=== PATIENT | male | born 1940 | race African-American/Black ===

== ENCOUNTER 2018-04-24 16:28 | Inpatient (IN) | payer MEDICARE, OTHER ==
[~2018-04-24] VITALS: Ht 172.7 cm; Wt 58.1 kg
--- NOTE | 2018-04-24 16:05 | NUR ---
Gps/Industrial Equipment Wirer- Admitted 77 years old male from 2nd floor maria isabel wheel chair. In no distress, confused, oriented to self, speech incoherent, unable to get clear information, mumbles . Skin very dry, toenails poor groomed. Report received from SATHYA Thomason. Noted patient is [facility] gowns up and down. Kept patient by the Nurses station, ,monitor closely for safety . Lidia LEAD CONSULTANT was called and was informed of the admission from second floor, needed to reconcile his meds.and, will review meds.
[~2018-04-24 16:28] MED LIST: ACET325T53 PO; AMLO5TAB2 PO; ASPI-618 PO; ATOR40TA PO; CEPH500C2 PO; CHOL10002 PO; CLON0.1T14 PO; DOCU100C36 PO; HYDR-3326 PO; HYDR25TA86 PO; PANT40TA2 PO; QUET25TA PO; VALS160T2 PO
[2018-04-24 17:00] VITALS: BP 124/81
[2018-04-24 17:26] VITALS: BP 133/64
[2018-04-24] MEDS ORDERED: MAG HYDROX/AL HYDROX/SIMETH 30 ML LIQUID UDC PO PRN (17:45)
[2018-04-24] MEDS ORDERED: ZOLPIDEM 5 MG TABLET PO PRN (17:45)
[2018-04-24] MEDS ORDERED: MAGNESIUM HYDROXIDE 30 ML LIQUID UDC PO PRN (17:45)
[2018-04-24] MEDS ORDERED: ACETAMINOPHEN 325 MG TABLET PO PRN ×2 (17:45→23:00)
[2018-04-24 20:29] VITALS: BP 130/60
[2018-04-24] MEDS ORDERED: QUETIAPINE FUMARATE 25 MG TABLET PO PRN (23:00)
[2018-04-24] MEDS ORDERED: CLONIDINE HCL 0.1 MG TABLET PO PRN (23:00)
[2018-04-24] MEDS ORDERED: HYDROCODONE/APAP 5-325MG TABLET PO PRN (23:00)
--- NOTE | 2018-04-25 00:12 | NUR ---
Pt continues to stay by the nurses' station. Refuses to go to his room to sleep or for nursing care. Kaur per MD order offered but refused. Also refused any snack. Repeatedly states, "Maybe later. Im working". Will continue to monitor for safety.
--- NOTE | 2018-04-25 05:52 | NUR ---
Fell asleep by the nurses' station after taking a shower this morning. Still refuses to take off jewelry, saying he would like to keep them on. One ring found on the floor, Charge Nurse put it in a bag for safekeeping and endorsement to day shift. Kept in a comfortable position; monitored closely for safety.
[2018-04-25] MEDS: hydrALAZINE HCL 25 MG TABLET PO SCH ×3 (06:00→21:14)
--- NOTE | 2018-04-25 06:13 | NUR ---
Refused any meds or snacks during the shift, says "I'm good for now. Maybe later." Will endorse accordingly.
[2018-04-25] MEDS: PANTOPRAZOLE SODIUM 40 MG TABLET.DR PO SCH (07:00)
[2018-04-25 07:30] VITALS: BP 154/76
[2018-04-25 07:49] LABS: ALANINE AMINOTRANSFERASE 50 U/L (16-63); ALKALINE PHOSPHATASE 54 U/L (50-136); ASPARTATE AMINOTRANSFERASE 66 U/L (15-37); BILIRUBIN,TOTAL 0.9 mg/dL (0.2-1.0); CARBON DIOXIDE 25 mmol/L (21-32); CHLORIDE 97 mmol/L (98-107); CREATININE 1.5 mg/dL (0.6-1.3); GLUCOSE 161 mg/dL (74-106); POTASSIUM 3.7 mmol/L (3.5-5.1); TOTAL PROTEIN, SERUM 7.6 g/dL (6.4-8.2); UREA NITROGEN, BLOOD 26 mg/dL (7-18)
[2018-04-25] MEDS: VALSARTAN 160 MG TABLET PO SCH ×2 (08:55→20:45)
[2018-04-25] MEDS: CHOLECALCIFEROL 1,000 UNIT TABLET PO SCH (08:55)
[2018-04-25] MEDS: AMLODIPINE 5 MG TABLET PO SCH (08:55)
[2018-04-25] MEDS: ASPIRIN EC 81 MG TABLET.DR PO SCH (08:55)
[2018-04-25] MEDS ORDERED: SULFAMETH/TRIMETH 800/160 MG TABLET PO SCH (09:00)
[2018-04-25] MEDS ORDERED: QUETIAPINE FUMARATE 25 MG TABLET PO SCH ×2 (09:00→21:00)
[2018-04-25] MEDS: QUETIAPINE FUMARATE 25 MG TABLET PO SCH ×3 (09:46→20:44)
[2018-04-25 10:51] LABS: BASOPHILS % (AUTO) 0.3 % (0.0-2.0); EOSINOPHILS # (AUTO) 0.1 K/uL (0.0-0.7); EOSINOPHILS % (AUTO) 2.3 % (0.0-7.0); HEMATOCRIT 28.6 % (36.7-47.1); HEMOGLOBIN 9.6 g/dL (12.5-16.3); LYMPHOCYTES # (AUTO) 0.3 K/uL (20.0-40.0); LYMPHOCYTES % (AUTO) 6.3 % (20.5-51.5); MEAN CORPUSCULAR HEMOGLOBIN 33.3 uug (23.8-33.4); MEAN CORPUSCULAR HGB CONC 34 g/dL (32.5-36.3); MEAN CORPUSCULAR VOLUME 98.7 fL (73.0-96.2); MONOCYTES # (AUTO) 1.1 K/uL (2.0-10.0); MONOCYTES % (AUTO) 20.7 % (0.0-11.0); NEUTROPHILS # (AUTO) 3.6 K/uL (1.8-8.9); NEUTROPHILS % (AUTO) 70.4 % (38.5-71.5); PLATELET COUNT (AUTO) 142 K/uL (152-348); WHITE BLOOD COUNT (AUTO) 5.1 K/uL (3.6-10.2)
[2018-04-25 11:21] LABS: LYMPHOCYTES % (MANUAL) 10 % (20-40); NEUTROPHILS % (MANUAL) 70 % (42-75)
[2018-04-25 11:22] LABS: EOSINOPHILS % (MANUAL) 3 % (0-8); MONOCYTES % (MANUAL) 17 % (2-10)
[2018-04-25 15:43] VITALS: BP 102/63
[2018-04-25 20:20] VITALS: BP 101/69
[2018-04-25] MEDS: ATORVASTATIN 40 MG TABLET PO SCH (20:44)
[2018-04-25] MEDS: DOCUSATE SODIUM 100 MG CAPSULE PO SCH (20:44)
[2018-04-25] MEDS: CEPHALEXIN MONOHYDRATE 500 MG CAPSULE PO SCH (21:02)
[2018-04-26 06:00] VITALS: BP 104/44
[2018-04-26] MEDS: hydrALAZINE HCL 25 MG TABLET PO SCH ×3 (06:00→22:30)
[2018-04-26] MEDS: PANTOPRAZOLE SODIUM 40 MG TABLET.DR PO SCH (06:08)
[2018-04-26] MEDS: CEPHALEXIN MONOHYDRATE 500 MG CAPSULE PO SCH ×3 (06:08→21:15)
--- NOTE | 2018-04-26 06:48 | NUR ---
HELD BP MEDS DURING SHIFT, BP LOW. CONTINUE ON 1:1 SITTER FOR SAFETY.
[2018-04-26 07:30] VITALS: BP 120/56
[2018-04-26] MEDS: VALSARTAN 160 MG TABLET PO SCH ×2 (08:25→21:14)
[2018-04-26] MEDS: AMLODIPINE 5 MG TABLET PO SCH (08:26)
[2018-04-26] MEDS: ASPIRIN EC 81 MG TABLET.DR PO SCH (08:26)
[2018-04-26] MEDS: CHOLECALCIFEROL 1,000 UNIT TABLET PO SCH (08:26)
[2018-04-26] MEDS: QUETIAPINE FUMARATE 25 MG TABLET PO SCH ×3 (08:29→21:15)
--- NOTE | 2018-04-26 10:22 | NUR ---
Firearms Report: Solar Manufacturer'S Representative completed and submitted [employer] Firearms Report for 5250 certification on 04/26/18.
--- NOTE | 2018-04-26 11:17 | NUR ---
Initial Discharge Instructions: Patient is currently homeless. Patient reports that he lives "in the hospital." Patient presented confused and was unable to discuss discharge planning at the time of the interview. Spoke with Selwyn Bermudez ([phone]) who is the Clarifier Operator of the [facility] where pt was placed on a 5150 hold. He confirmed that the patient does not have a primary contact and that the patient is homeless. SW will continue to collaborate with the pt and MD regarding appropriate discharge disposition for the patient. SW will form a safe and proper discharge plan.
[2018-04-26 15:42] VITALS: BP 132/61
[2018-04-26 19:30] VITALS: BP 120/60
[2018-04-26] MEDS: ATORVASTATIN 40 MG TABLET PO SCH (21:14)
[2018-04-26] MEDS: DOCUSATE SODIUM 100 MG CAPSULE PO SCH (21:14)
--- NOTE | 2018-04-26 22:00 | NUR ---
received to care, lying in bed, appearing confused, but pleasant upon approach. compliant with medications, snacks, and staff direction. 1:1 sitter remains at bedside for safety. as of 2200, he appears to be asleep. no distress noted. will continue to monitor closely.
--- NOTE | 2018-04-27 06:00 | NUR ---
slept 7.5 hours, total. is now awake. assisted with AM care, and shower. sitter remains at side, for safety. no distress noted.
[2018-04-27] MEDS: PANTOPRAZOLE SODIUM 40 MG TABLET.DR PO SCH (06:04)
[2018-04-27] MEDS: CEPHALEXIN MONOHYDRATE 500 MG CAPSULE PO SCH ×2 (06:04→14:00)
[2018-04-27] MEDS: hydrALAZINE HCL 25 MG TABLET PO SCH ×3 (06:11→22:00)
[2018-04-27 08:00] VITALS: BP 134/66
[2018-04-27] MEDS: VALSARTAN 160 MG TABLET PO SCH ×2 (09:13→20:23)
[2018-04-27] MEDS: ASPIRIN EC 81 MG TABLET.DR PO SCH (09:13)
[2018-04-27] MEDS: CHOLECALCIFEROL 1,000 UNIT TABLET PO SCH (09:13)
[2018-04-27] MEDS: AMLODIPINE 5 MG TABLET PO SCH (09:14)
[2018-04-27] MEDS: QUETIAPINE FUMARATE 25 MG TABLET PO SCH ×3 (09:14→20:22)
--- NOTE | 2018-04-27 11:52 | NUR ---
GPS/RN- SITTER PATIENT ANXIOUS, CONFUSED AND RESTLESS. POOR INSIGHT, FALL RISK, AMBULATES UNSTEADY, REFUSES TO USE WALKER, OVERESTIMATES, ARGUMENTATIVE. CONFUSED DISORIENTED.
[2018-04-27 11:54] VITALS: BP 162/80
[2018-04-27] MEDS: LORAZEPAM 1 MG TABLET PO PRN (11:57)
--- NOTE | 2018-04-27 12:03 | NUR ---
Patient noted with BP of 162/88, HR of 92, PRN Clonidine 0.1 mg PO given. Patient also noted increasing anxiety, getting out of bed, asking for his valuables, PRN Ativan 1mg PO also given. Sitter at bedside. Will continue to monitor.
--- NOTE | 2018-04-27 14:00 | NUR ---
gps/rn- patient anxious and restless frequently pacing unable to redirect and calm, pushing at door then returning to station, patient returns to bed then begins to get anxious pacing again, prn ativan not effective, PRN Seroquel orders received for a one time dose at this time 25mg, orders read back to Dr Aguilar
[2018-04-27 14:12] VITALS: BP 147/68
[2018-04-27] MEDS ORDERED: QUETIAPINE FUMARATE 25 MG TABLET PO ONE (14:15)
[2018-04-27 16:00] VITALS: BP 147/69
[2018-04-27 19:00] VITALS: BP 125/68
[2018-04-27] MEDS: DOCUSATE SODIUM 100 MG CAPSULE PO SCH (20:22)
[2018-04-27] MEDS: ATORVASTATIN 40 MG TABLET PO SCH (20:22)
--- NOTE | 2018-04-27 22:00 | NUR ---
received to care, lying in bed, appearing confused, but pleasant upon approach. ambulated in hallway and toileted via front wheel walker. compliant with medications, snacks, and staff direction. 1:1 sitter remains at bedside for safety. as of 2200, he appears to be asleep. no distress noted. will continue to monitor closely.
[2018-04-28] MEDS: PANTOPRAZOLE SODIUM 40 MG TABLET.DR PO SCH (05:51)
[2018-04-28] MEDS: hydrALAZINE HCL 25 MG TABLET PO SCH ×3 (05:51→22:00)
--- NOTE | 2018-04-28 06:00 | NUR ---
slept 6.0 hours, total. is now awake. sitter remains at side, for safety. no distress noted.
[2018-04-28 08:00] VITALS: BP 103/46
[2018-04-28] MEDS: VALSARTAN 160 MG TABLET PO SCH ×2 (08:23→20:35)
[2018-04-28] MEDS: QUETIAPINE FUMARATE 25 MG TABLET PO SCH ×3 (08:23→20:35)
[2018-04-28] MEDS: ASPIRIN EC 81 MG TABLET.DR PO SCH (08:23)
[2018-04-28] MEDS: CHOLECALCIFEROL 1,000 UNIT TABLET PO SCH (08:24)
[2018-04-28] MEDS: AMLODIPINE 5 MG TABLET PO SCH (08:24)
[2018-04-28] MEDS: LORAZEPAM 1 MG TABLET PO PRN ×2 (08:45→12:49)
--- NOTE | 2018-04-28 14:37 | NUR ---
Cloud Developer: Received call from Handle Bar Assembler Boo Taylormerlyn #[id number] ([phone]) from Missing Persons. Det. Boo reported that pt had a Missing Persons Case. SW confirmed information with . Shortly after call, received call from pt's dtr, Marielle Whitfield ([phone]) who expressed gratitude that her "dad was OK and safe." She asked to speak with her father, and SW transferred call to nurse's station. SW will continue to follow-up with family regarding discharge planning.
--- NOTE | 2018-04-28 15:00 | NUR ---
GPS/RN-FAMILY INFORMATION Received call from patients daughter Jimena Yarbrough, patient lives independently at home with daughters to visit and check up on him. patient visited by daughters Kasey and Jimena, Kasey will visit on Wednesday to see how her father/patient is doing to see if family will be interested in placement. (contact # for jimena [phone] and Kasey [phone]).
[2018-04-28 16:00] VITALS: BP 110/64
--- NOTE | 2018-04-28 18:53 | NUR ---
This is second time patient has gone missing, last time was one year ago for a day or two. this time patient has been missing since 04/18/18.
[2018-04-28] MEDS: ATORVASTATIN 40 MG TABLET PO SCH (20:35)
[2018-04-28] MEDS: DOCUSATE SODIUM 100 MG CAPSULE PO SCH (20:35)
[2018-04-28 21:00] VITALS: BP 131/60
[2018-04-29] MEDS: hydrALAZINE HCL 25 MG TABLET PO SCH ×3 (06:22→22:00)
[2018-04-29] MEDS: PANTOPRAZOLE SODIUM 40 MG TABLET.DR PO SCH (06:22)
--- NOTE | 2018-04-29 07:00 | NUR ---
slept 7.0 hours, total. is now awake. sitter remains at side, for safety. no distress noted.
[2018-04-29 07:24] LABS: CARBON DIOXIDE 25 mmol/L (21-32); CHLORIDE 99 mmol/L (98-107); CREATININE 1.7 mg/dL (0.6-1.3); GLUCOSE 181 mg/dL (74-106); POTASSIUM 4.1 mmol/L (3.5-5.1); UREA NITROGEN, BLOOD 36 mg/dL (7-18)
[2018-04-29 07:30] VITALS: BP 132/61
[2018-04-29 07:53] LABS: BASOPHILS % (AUTO) 0.4 % (0.0-2.0); EOSINOPHILS # (AUTO) 0.2 K/uL (0.0-0.7); EOSINOPHILS % (AUTO) 4.8 % (0.0-7.0); HEMATOCRIT 26.4 % (36.7-47.1); HEMOGLOBIN 8.9 g/dL (12.5-16.3); LYMPHOCYTES # (AUTO) 0.6 K/uL (20.0-40.0); LYMPHOCYTES % (AUTO) 13.6 % (20.5-51.5); MEAN CORPUSCULAR HEMOGLOBIN 33.2 uug (23.8-33.4); MEAN CORPUSCULAR HGB CONC 34 g/dL (32.5-36.3); MEAN CORPUSCULAR VOLUME 98.8 fL (73.0-96.2); MONOCYTES # (AUTO) 0.6 K/uL (2.0-10.0); MONOCYTES % (AUTO) 13.8 % (0.0-11.0); NEUTROPHILS % (AUTO) 67.4 % (38.5-71.5); RED BLOOD CELL COUNT(AUTO) 2.67 MIL/uL (4.06-5.63); WHITE BLOOD COUNT (AUTO) 4.4 K/uL (3.6-10.2)
[2018-04-29 08:09] LABS: PLATELET COUNT (AUTO) 278 K/uL (152-348)
[2018-04-29] MEDS: ASPIRIN EC 81 MG TABLET.DR PO SCH (09:17)
[2018-04-29] MEDS: CHOLECALCIFEROL 1,000 UNIT TABLET PO SCH (09:17)
[2018-04-29] MEDS: VALSARTAN 160 MG TABLET PO SCH ×2 (09:17→20:51)
[2018-04-29] MEDS: AMLODIPINE 5 MG TABLET PO SCH (09:17)
[2018-04-29] MEDS: QUETIAPINE FUMARATE 25 MG TABLET PO SCH ×4 (09:18→20:51)
[2018-04-29 15:49] VITALS: BP 111/48
--- NOTE | 2018-04-29 16:11 | NUR ---
Gps/High Speed Printer Operator- Patient's daughter Marielle called ,was able to talked to patient, planning to visit patient today. Per Jewelry Internship Edwina , patient daughter filled a missing person report , and patient had been missing for 10 days. Patient remains confused, needed constant reorientations redirections.Remains on 1:1 Nursing supervision for safety
--- NOTE | 2018-04-29 18:02 | NUR ---
Gps/Fertilizer Processing Supervisor- Likes to walk around, encouraged to use front wheel walker for safety, tends to go off to right side during ambulation, needed verbal cueing, sequencing tasks/Remains confused/disoriented , no agitation noted.
[2018-04-29] MEDS: ATORVASTATIN 40 MG TABLET PO SCH (20:50)
[2018-04-29] MEDS: DOCUSATE SODIUM 100 MG CAPSULE PO SCH (20:50)
[2018-04-29 21:39] VITALS: BP 140/62
[2018-04-30] MEDS: hydrALAZINE HCL 25 MG TABLET PO SCH ×3 (05:53→22:00)
--- NOTE | 2018-04-30 06:19 | NUR ---
GPS: Remain calm and cooperative with medications and care. continue on 1:1 sitter @ bedside for safety.slept 4:30 hrs through the night. assisted with adl's. unsteady gait,on fall percaution.continue plan of care.
[2018-04-30] MEDS: PANTOPRAZOLE SODIUM 40 MG TABLET.DR PO SCH (06:26)
[2018-04-30 07:30] VITALS: BP 139/66
[2018-04-30] MEDS: CHOLECALCIFEROL 1,000 UNIT TABLET PO SCH (09:50)
[2018-04-30] MEDS: VALSARTAN 160 MG TABLET PO SCH ×2 (09:50→21:37)
[2018-04-30] MEDS: ASPIRIN EC 81 MG TABLET.DR PO SCH (09:50)
[2018-04-30] MEDS: QUETIAPINE FUMARATE 25 MG TABLET PO SCH ×4 (09:50→21:36)
[2018-04-30] MEDS: AMLODIPINE 5 MG TABLET PO SCH (09:52)
[2018-04-30 17:19] VITALS: BP 137/62
--- NOTE | 2018-04-30 18:45 | NUR ---
PATIENT HAS BEEN COMPLIANT AND WITH NO BEHAVIOR PROBLEMS 1;1 SITTER AT BEDSIDE VOIDIND AND POOR ORAL INTAKE , DAUGHTER IN TOO VISIT THIS PM STILL A LITTLE DIS ORIENTATED, CONTINUE MONITOR FOR SAFETY
[2018-04-30 20:00] VITALS: BP 135/61
--- NOTE | 2018-04-30 21:00 | NUR ---
PT HAS 1:1 SITTER. PT AWAKE, ALERT, ORIENTEDX2. PT SHOWS NO SIGNS OF DISTRESS. SAFETY PROVIDED. WILL CONTINUE TO MONITOR.
[2018-04-30] MEDS: DOCUSATE SODIUM 100 MG CAPSULE PO SCH (21:36)
[2018-04-30] MEDS: ATORVASTATIN 40 MG TABLET PO SCH (21:36)
[2018-04-30 22:00] VITALS: BP 119/73
--- NOTE | 2018-04-30 22:30 | NUR ---
PT REFUSE TO TAKE HIS HYDRALAZINE MEDICATION. I WASTED HIS MEDICATION IN PYXIS. CHARGE NURSE AWARE. RECENT BP WAS 119/63 AND 73 PULSE RATE. WILL CONTINUE TO MONITOR.
[2018-05-01] MEDS: LORAZEPAM 1 MG TABLET PO PRN ×4 (02:10→20:24)
--- NOTE | 2018-05-01 02:53 | NUR ---
PT NOTED TO BE AWAKE AND UNABLE TO FALL BACK ASLEEP. PT WAS SLIGHTLY ANXIOUS. UNABLE TO GIVE SLEEPING MEDICATION BECAUSE ITS PAST 2AM .GIVEN ATIVAN PO PRN. WILL CONTINUE TO MONITOR.
[2018-05-01] MEDS: PANTOPRAZOLE SODIUM 40 MG TABLET.DR PO SCH (06:27)
[2018-05-01] MEDS: hydrALAZINE HCL 25 MG TABLET PO SCH ×3 (06:34→22:00)
--- NOTE | 2018-05-01 06:49 | NUR ---
PT SLEPT INTERMITTENTLY DURING THE SHIFT. PT SHOWS NO SIGNS OF DISTRESS. PT CALM AND COOPERATIVE. SITTER AT BEDSIDE.SAFETY AND COMFORT PROVIDED. WILL ENDORSE TO DAYSHIFT NURSE.
[2018-05-01 07:30] VITALS: BP 141/55
[2018-05-01 07:50] LABS: BASOPHILS % (AUTO) 0.8 % (0.0-2.0); EOSINOPHILS # (AUTO) 0.3 K/uL (0.0-0.7); EOSINOPHILS % (AUTO) 5.4 % (0.0-7.0); HEMATOCRIT 26.6 % (36.7-47.1); HEMOGLOBIN 9.2 g/dL (12.5-16.3); LYMPHOCYTES # (AUTO) 1.1 K/uL (20.0-40.0); LYMPHOCYTES % (AUTO) 21.7 % (20.5-51.5); MEAN CORPUSCULAR HEMOGLOBIN 33.9 uug (23.8-33.4); MEAN CORPUSCULAR HGB CONC 35 g/dL (32.5-36.3); MEAN CORPUSCULAR VOLUME 98.2 fL (73.0-96.2); MONOCYTES # (AUTO) 0.6 K/uL (2.0-10.0); MONOCYTES % (AUTO) 11.4 % (0.0-11.0); NEUTROPHILS % (AUTO) 60.7 % (38.5-71.5); PLATELET COUNT (AUTO) 281 K/uL (152-348); RED BLOOD CELL COUNT(AUTO) 2.71 MIL/uL (4.06-5.63); WHITE BLOOD COUNT (AUTO) 4.9 K/uL (3.6-10.2)
[2018-05-01 08:24] LABS: CARBON DIOXIDE 23 mmol/L (21-32); CHLORIDE 100 mmol/L (98-107); CREATININE 1.4 mg/dL (0.6-1.3); GLUCOSE 210 mg/dL (74-106); MAGNESIUM 1.5 mg/dL (1.8-2.4); PHOSPHOROUS 3.5 mg/dL (2.5-4.9); POTASSIUM 4.9 mmol/L (3.5-5.1); UREA NITROGEN, BLOOD 37 mg/dL (7-18)
[2018-05-01] MEDS: AMLODIPINE 5 MG TABLET PO SCH (08:38)
[2018-05-01] MEDS: QUETIAPINE FUMARATE 25 MG TABLET PO SCH ×3 (08:38→21:32)
[2018-05-01] MEDS: VALSARTAN 160 MG TABLET PO SCH ×2 (08:38→21:33)
[2018-05-01] MEDS: CHOLECALCIFEROL 1,000 UNIT TABLET PO SCH (08:38)
[2018-05-01] MEDS: ASPIRIN EC 81 MG TABLET.DR PO SCH (08:38)
[2018-05-01] MEDS ORDERED: MAGNESIUM OXIDE 400 MG TABLET PO ONE (10:30)
--- NOTE | 2018-05-01 15:31 | NUR ---
GPS: Nursing Notes: Thought Disorder: Patient is awake and responding to his name, confused, disoriented, impaired judgment, resistant with nursing care, needs prompting to be cooperative with nursing care, internally preoccupied, believes that his car is park outside, redirected and reoriented during shift, continue with 1:1 sitter for safety, unsteady gait, unable to formulate a plan for self care, continue with treatment plan.
[2018-05-01 15:36] VITALS: BP 132/66
[2018-05-01 20:00] VITALS: BP 115/59
--- NOTE | 2018-05-01 20:24 | NUR ---
PT AGITATED. DOESN'T WANT TO LIE DOWN ON HIS BED, KEEP TRYING TO TAKE OUT HIS SHIRT AND PUTTING BACK ON INCORRECTLY. GIVEN ATIVAN AT THIS TIME. SITTER AT BEDSIDE. WILL CONTINUE TO MONITOR
--- NOTE | 2018-05-01 21:00 | NUR ---
PT RESPONDING TO HIS NAME, CONFUSED AND DISORIENTED. COMPLIANT WITH HIS MEDICATION . NEED TO REDIRECT THE PT. SITTER AT BEDSIDE. PT SHOWS NO SIGNS OF DISTRESS. SAFETY PROVIDED. WILL CONTINUE TO MONITOR.
[2018-05-01] MEDS: DOCUSATE SODIUM 100 MG CAPSULE PO SCH (21:32)
[2018-05-01] MEDS: ATORVASTATIN 40 MG TABLET PO SCH (21:32)
--- NOTE | 2018-05-01 21:32 | NUR ---
PT GIVEN THE PRESCRIBED MEDICATION FOR NIGHT. PT COMPLIANT WITH HIS MEDICATION. WILL CONTINUE TO MONITOR.
[2018-05-01 22:00] VITALS: BP 99/58
--- NOTE | 2018-05-01 22:00 | NUR ---
PT APRESOLINE WAS HELD BECAUSE PT BP WAS LOW 99/58.PT ALSO IS AGITATED AND DOESN'T WANT ANY MEDICATION. WILL CONTINUE TO MONITOR.
--- NOTE | 2018-05-02 00:25 | NUR ---
PT GIVEN NORCO PER NURSING JUDGEMENT BECAUSE PT SHOWS FACIAL GRIMACE AND MOANING AND KEEP TURNING FROM HIS BED. WILL CONTINUE TO MONITOR.
--- NOTE | 2018-05-02 01:00 | NUR ---
PT ASLEEP COMFORTABLY ON HIS BED. SITTER AT BEDSIDE. SAFETY PROVIDED. WILL CONTINUE TO MONITOR.
--- NOTE | 2018-05-02 05:49 | NUR ---
PT SLEPT THROUGHOUT THE SHIFT. PT SHOWS NO SIGNS OF DISTRESS.SITTER AT BEDSIDE. COMPLIANT WITH MEDICATION. SAFETY PROVIDED. WILL ENDORSE TO DAYSHIFT NURSE.
[2018-05-02] MEDS: PANTOPRAZOLE SODIUM 40 MG TABLET.DR PO SCH (06:18)
[2018-05-02] MEDS: hydrALAZINE HCL 25 MG TABLET PO SCH ×3 (06:18→23:05)
[2018-05-02 06:20] VITALS: BP 150/82
[2018-05-02 07:30] VITALS: BP 129/59
[2018-05-02 08:06] LABS: CARBON DIOXIDE 28 mmol/L (21-32); CHLORIDE 100 mmol/L (98-107); CREATININE 1.8 mg/dL (0.6-1.3); GLUCOSE 235 mg/dL (74-106); MAGNESIUM 1.4 mg/dL (1.8-2.4); PHOSPHOROUS 3.5 mg/dL (2.5-4.9); POTASSIUM 4.6 mmol/L (3.5-5.1); UREA NITROGEN, BLOOD 39 mg/dL (7-18)
[2018-05-02] MEDS: VALSARTAN 160 MG TABLET PO SCH ×2 (08:09→20:02)
[2018-05-02] MEDS: ASPIRIN EC 81 MG TABLET.DR PO SCH (08:09)
[2018-05-02] MEDS: QUETIAPINE FUMARATE 25 MG TABLET PO SCH ×3 (08:10→20:03)
[2018-05-02] MEDS: AMLODIPINE 5 MG TABLET PO SCH (08:10)
[2018-05-02] MEDS: CHOLECALCIFEROL 1,000 UNIT TABLET PO SCH (08:10)
[2018-05-02 13:00] VITALS: BP 131/53
[2018-05-02] MEDS ORDERED: MAGNESIUM OXIDE 400 MG TABLET PO ONE (13:00)
[2018-05-02 19:30] VITALS: BP 125/49
[2018-05-02] MEDS: DOCUSATE SODIUM 100 MG CAPSULE PO SCH (20:02)
[2018-05-02] MEDS: ATORVASTATIN 40 MG TABLET PO SCH (20:03)
[2018-05-03] MEDS: LORAZEPAM 1 MG TABLET PO PRN (00:59)
[2018-05-03] MEDS: hydrALAZINE HCL 25 MG TABLET PO SCH ×3 (06:07→22:03)
[2018-05-03] MEDS: PANTOPRAZOLE SODIUM 40 MG TABLET.DR PO SCH (06:07)
[2018-05-03 07:30] VITALS: BP 135/57
[2018-05-03 07:47] LABS: ALANINE AMINOTRANSFERASE 87 U/L (16-63); ALKALINE PHOSPHATASE 63 U/L (50-136); ASPARTATE AMINOTRANSFERASE 79 U/L (15-37); BILIRUBIN,TOTAL 0.6 mg/dL (0.2-1.0); CARBON DIOXIDE 26 mmol/L (21-32); CHLORIDE 100 mmol/L (98-107); CREATININE 1.5 mg/dL (0.6-1.3); MAGNESIUM 1.6 mg/dL (1.8-2.4); PHOSPHOROUS 3.4 mg/dL (2.5-4.9); POTASSIUM 4.9 mmol/L (3.5-5.1); TOTAL PROTEIN, SERUM 7.2 g/dL (6.4-8.2); UREA NITROGEN, BLOOD 37 mg/dL (7-18)
[2018-05-03 07:49] LABS: GLUCOSE 364 mg/dL (74-106)
[2018-05-03] MEDS: VALSARTAN 160 MG TABLET PO SCH ×2 (08:27→20:04)
[2018-05-03] MEDS: CHOLECALCIFEROL 1,000 UNIT TABLET PO SCH (08:27)
[2018-05-03] MEDS: AMLODIPINE 5 MG TABLET PO SCH (08:27)
[2018-05-03] MEDS: QUETIAPINE FUMARATE 25 MG TABLET PO SCH ×3 (08:28→20:04)
[2018-05-03] MEDS: ASPIRIN EC 81 MG TABLET.DR PO SCH (08:28)
[2018-05-03] MEDS ORDERED: MAGNESIUM OXIDE 400 MG TABLET PO ONE (13:45)
[2018-05-03 16:31] VITALS: BP 105/48
[2018-05-03 19:56] VITALS: BP 108/59
[2018-05-03] MEDS: ATORVASTATIN 40 MG TABLET PO SCH (20:04)
[2018-05-03] MEDS: DOCUSATE SODIUM 100 MG CAPSULE PO SCH (20:04)
[2018-05-04] MEDS: LORAZEPAM 1 MG TABLET PO PRN (00:15)
--- NOTE | 2018-05-04 00:15 | NUR ---
GPS: Pt.is awake at this time,anxious and unable to fall back to sleep. Denied pain when asked. Denies need to use toilet at this time. Re-assured by staff prn. Ativan 1mg given PO for anxiety. Will monitor effectiveness of med. Safety emphasized. 1:1 sitter at bedside for safety.
--- NOTE | 2018-05-04 01:50 | NUR ---
GPS: Asleep upon rounds. In no acute resp.distress noted. Bed alarm on for safety.
[2018-05-04] MEDS: PANTOPRAZOLE SODIUM 40 MG TABLET.DR PO SCH (06:33)
[2018-05-04] MEDS: hydrALAZINE HCL 25 MG TABLET PO SCH ×2 (06:36→13:29)
[2018-05-04 08:00] VITALS: BP 102/65
[2018-05-04] MEDS: ASPIRIN EC 81 MG TABLET.DR PO SCH (08:07)
[2018-05-04] MEDS: CHOLECALCIFEROL 1,000 UNIT TABLET PO SCH (08:07)
[2018-05-04] MEDS: QUETIAPINE FUMARATE 25 MG TABLET PO SCH (08:07)
--- NOTE | 2018-05-04 08:13 | NUR ---
DC Note: Patient will be discharged back home with his daughter [[address] [place] [address]; [phone]] via private transportation between 11am and 12pm. Spoke with patients daughter, Barb Leyva ([phone]) who has agreed to provide transportation and is aware and agreeable with discharge plans. Patient is alert and oriented x1 and is cooperative. Patient will continue to follow-up with his Primary Care Physician, Dr. Suleman Rivas [[address] [place] [address]; [phone]]. Patient was provided with a list of Medicare-accepting Psychiatrists in his area, including Dr. Dante Smalls [[address] [place] [address]; [phone]], Dr. Hong Tran [[address] [place] [address]; [phone]], and Dr. Horace Friedman [[address] [place] [address]; [phone]]. Home Health Order for PT and Nursing was faxed to [facility] (ph. [phone]; fax [phone]). Spoke with Itz in intake, and patient was accepted with start of care on 05/05/18. Patient is alert and oriented x1; therefore, pt was unable to participate in brief substance abuse intervention. However, outpatient substance abuse referrals were provided to the patient including [facility] , [facility] , and [facility] . SEVLIN will place a follow-up call to the patient 15-30 days post discharge. SELVIN provided caregiving resources to patients daughters for further support as well. Addendum: 05/04/18 at 0959 by VALERIE MONTALVO Patient was also offered SNF placement. SELVIN spoke with Fadi at [facility] [[address] [place] [address]; ] who stated they can accept patient. SELVIN Bland offered this option to patient's family. However, patient's daughter Barb ([phone]) stated they would like to take patient home at this time.
[2018-05-04 08:20] LABS: CARBON DIOXIDE 30 mmol/L (21-32); CHLORIDE 100 mmol/L (98-107); CREATININE 1.4 mg/dL (0.6-1.3); GLUCOSE 294 mg/dL (74-106); POTASSIUM 4.7 mmol/L (3.5-5.1); UREA NITROGEN, BLOOD 39 mg/dL (7-18)
[2018-05-04] MEDS: AMLODIPINE 5 MG TABLET PO SCH (08:51)
[2018-05-04] MEDS: VALSARTAN 160 MG TABLET PO SCH (08:51)
[2018-05-04 13:27] VITALS: BP 126/72
[2018-05-04 13:29] VITALS: BP 126/72
--- NOTE | 2018-05-04 13:30 | NUR ---
GPS/RN- DISCHARGE NOTE patient remained alert and oriented to self, confused about place and time, forgetful; constant redirection, ambulate with standby assist, refuse to use walker, compliant with meds. denies any SI/HI, no hallucinations noted. no aggressive behavior. sitter at side for safety. Patient is being discharged back home with his daughter [[address] [place] [address]; [phone]] via private car at this time. Patient will continue to follow-up with his Primary Care Physician, Dr. Suleman Rivas [[address] [place] [address]; [phone]] or primary care provider by insurance . Patient was provided with a list of Medicare-accepting Psychiatrists in his area, including Dr. Dante Smalls [[address] [place] [address]; [phone]], Dr. Hong Tran [[address] [place] [address]; [phone]], and Dr. Horace Friedman [[address] [place] [address]; [phone]]. Home Health Order for PT and Nursing was faxed to [facility] (ph. [phone]; fax [phone]). Discharge instructions provided to family Barb verbalized understanding. belongings returned and accounted for. questions and concerns addressed.
== END 2018-05-04 13:30 | disposition home or self-care (01) | DRG 885 ==
LOC: GPS 16:28
PROVIDERS: ADMIT Psychiatry & Neurology Psychiatry; ATTEND Internal Medicine
DX: F29 Unspecified psychosis not due to a substance or known physiological condition (principal); N17.9 Acute kidney failure, unspecified; N18.9 Chronic kidney disease, unspecified; G93.40 Encephalopathy, unspecified; E87.1 Hypo-osmolality and hyponatremia; F03.91 Unspecified dementia, unspecified severity, with behavioral disturbance; N39.0 Urinary tract infection, site not specified; D69.6 Thrombocytopenia, unspecified; D53.9 Nutritional anemia, unspecified; E83.42 Hypomagnesemia; E83.52 Hypercalcemia; N40.1 Benign prostatic hyperplasia with lower urinary tract symptoms; I12.9 Hypertensive chronic kidney disease with stage 1 through stage 4 chronic kidney disease, or unspecified chronic kidney disease; E55.9 Vitamin D deficiency, unspecified; Z87.440 Personal history of urinary (tract) infections; D63.1 Anemia in chronic kidney disease; R73.9 Hyperglycemia, unspecified; K76.0 Fatty (change of) liver, not elsewhere classified; I34.0 Nonrheumatic mitral (valve) insufficiency; I36.1 Nonrheumatic tricuspid (valve) insufficiency; M48.061 Spinal stenosis, lumbar region without neurogenic claudication; B96.89 Other specified bacterial agents as the cause of diseases classified elsewhere; E78.00 Pure hypercholesterolemia, unspecified
CPT/HCPCS: 36415; 83735; 84100; 85025; 97116; 97530